=== PATIENT | female | born 1995 | race Caucasian/White ===

== ENCOUNTER 2020-09-28 16:45 | Emergency (ER) | payer OTHER ==
[~2020-09-28 16:45] MED LIST: BENTYL10 MG PO; PHENERGAN25 M1 PO
[2020-09-28 21:49] LABS: BASOPHIL 0.3 % (0-2); EOSINOPHIL 1.3 % (0-5); HCT 43.6 % (37.0-47.0); HGB 14.1 g/dl (12.5-16.0); LYMPHOCYTE 41.9 % (15-48); MCH 30.3 pg (25.0-31.0); MCHC 32.3 g/dL (32.0-36.0); MCV 93.8 fL (78.0-100.0); MONOCYTE 6.4 % (0-12); MPV 11.4 fL (6.0-9.5); NEUTROPHIL 49.9 % (41-80); NRBC 0; PLT 226 K/uL (150-400); RBC 4.65 M/uL (4.20-5.40); RDW 13.1 % (11.5-14.0); WBC 6.4 K/uL (4.0-10.5)
[2020-09-28 22:12] LABS: BILIRUBIN NEGATIVE (NEGATIVE); BLOOD NEGATIVE Ery/uL (NEGATIVE); CLARITY HAZY (CLEAR); COLOR YELLOW (YELLOW); GLUCOSE (U) NORMAL (NORMAL); LEUKOCYTES TRACE Leu/uL (NEGATIVE); NITRITE POSITIVE (NEGATIVE); PROTEIN NEGATIVE (NEGATIVE); SPECIFIC GRAVITY >=1.030 (1.001-1.030); UROBILINOGEN 0.2 mg/dL (0.2-1.0)
[2020-09-28 22:20] LABS: ECSTASY (MDMA) NEGATIVE (NEGATIVE); MARIJUANA (THC) POSITIVE (NEGATIVE)
[2020-09-28 22:21] LABS: AMPHETAMINES NEGATIVE (NEGATIVE); BARBITURATES POSITIVE (NEGATIVE); METHADONE NEGATIVE (NEGATIVE); OPIATES POSITIVE (NEGATIVE); OXYCODONE NEGATIVE (NEGATIVE)
[2020-09-28 22:30] LABS: BACTERIA 4+
[2020-09-28 22:31] LABS: MUCOUS MODERATE
[2020-09-28 22:42] LABS: ACETAMINOPHEN (TYLENOL) < 2.0 ug/mL (10.0-30.0); ALKALINE PHOSHATASE 73 U/L (46-116); ALT 26 U/L (14-59); AST 16 U/L (15-37); BILIRUBIN - TOTAL 0.4 mg/dL (0.2-1.0); BUN 10 mg/dL (7-18); BUN/CREAT RATIO (CALC) 10.8 RATIO; CHLORIDE 105 mmol/L (98-107); CO2 (BICARBONATE) 24 mmol/L (21-32); CREATININE 0.93 mg/dL (0.51-0.95); GLOBULIN (CALCULATION) 3.6 g/dL; GLUCOSE 73 mg/dL (74-106); POTASSIUM 3.5 mmol/L (3.5-5.1); TOTAL PROTEIN 7.6 g/dL (6.4-8.2)
[2020-09-29 01:02] LABS: MARIJUANA (THC) POSITIVE (NEGATIVE)
[2020-09-29 01:03] LABS: BARBITURATES POSITIVE (NEGATIVE); ECSTASY (MDMA) NEGATIVE (NEGATIVE); METHADONE NEGATIVE (NEGATIVE); OPIATES POSITIVE (NEGATIVE)
[2020-09-29 01:04] LABS: AMPHETAMINES NEGATIVE (NEGATIVE); OXYCODONE NEGATIVE (NEGATIVE)
[2020-09-29] MEDS ORDERED: KEFLEX500 MG PO (02:30)
[2020-09-29] MEDS ORDERED: DIFLUCAN150 MG PO (02:30)
== END 2020-09-29 03:13 | disposition home or self-care (01) ==
LOC: FER 16:45
PROVIDERS: Emergency Medicine Emergency Medical Services; Nurse Practitioner Family
DX: T42.4X1A Poisoning by benzodiazepines, accidental (unintentional), initial encounter (principal); T51.0X1A Toxic effect of ethanol, accidental (unintentional), initial encounter; I95.1 Orthostatic hypotension; N39.0 Urinary tract infection, site not specified; I10 Essential (primary) hypertension; F41.1 Generalized anxiety disorder; F42.9 Obsessive-compulsive disorder, unspecified; F32.9 Major depressive disorder, single episode, unspecified; F17.200 Nicotine dependence, unspecified, uncomplicated; Z79.899 Other long term (current) drug therapy; Z88.1 Allergy status to other antibiotic agents; Z88.2 Allergy status to sulfonamides; Z88.8 Allergy status to other drugs, medicaments and biological substances; Z87.19 Personal history of other diseases of the digestive system
CPT/HCPCS: 36415; 70450; 80053; 80305; 81001; 85025; 93005; G0480; J7030

== ENCOUNTER 2022-04-16 02:32 | Emergency (ER) | payer OTHER ==
[~2022-04-16 02:32] MED LIST changes: +DIFLUCAN150 MG PO; +KEFLEX500 MG PO
[2022-04-16 03:14] LABS: BASOPHIL 0.1 % (0-2); EOSINOPHIL 1.6 % (0-5); HCT 38.6 % (37.0-47.0); HGB 12.8 g/dl (12.5-16.0); LYMPHOCYTE 14.3 % (15-48); MCH 30.8 pg (25.0-31.0); MCHC 33.2 g/dL (32.0-36.0); MPV 9.5 fL (6.0-9.5); NEUTROPHIL 76.6 % (41-80); NRBC 0; PLT 205 K/uL (150-400); RBC 4.15 M/uL (4.20-5.40); RDW 12.9 % (11.5-14.0); WBC 13.8 K/uL (4.0-10.5)
[2022-04-16 03:24] LABS: INR 1.03 (0.9-1.2); PROTHROMBIN TIME 13.2 SECONDS (11.9-13.9)
[2022-04-16 03:33] LABS: ALBUMIN 3.3 g/dL (3.4-5.0); BILIRUBIN - TOTAL 0.5 mg/dL (0.2-1.0); BUN/CREAT RATIO (CALC) 12.1 RATIO; CREATININE 0.66 mg/dL (0.51-0.95); GLOBULIN (CALCULATION) 3.1 g/dL; POTASSIUM 4.2 mmol/L (3.5-5.1); TOTAL PROTEIN 6.4 g/dL (6.4-8.2)
== END 2022-04-16 04:25 | disposition other institution (70) ==
LOC: FER 02:32
PROVIDERS: Emergency Medicine
DX: J95.830 Postprocedural hemorrhage of a respiratory system organ or structure following a respiratory system procedure (principal); Z98.890 Other specified postprocedural states; Z88.1 Allergy status to other antibiotic agents; Y83.8 Other surgical procedures as the cause of abnormal reaction of the patient, or of later complication, without mention of misadventure at the time of the procedure
CPT/HCPCS: 36415; 80053; 85025; 85610; 99284